=== PATIENT | female | born 1990 | race Caucasian/White ===

== ENCOUNTER 2016-09-01 19:15 | Emergency (ER) | payer MEDICAID ==
--- NOTE | ~2016-09-01 | ER ---
PATIENT'S NAME: JAGJIT RICARDO [facility] AGE: 25 Y [address] ROOM: [place] [address] LOCATION: ED ADMIT DATE: 09/01/2016 ER/Outpatient Report DISCHARGE DATE: 09/01/2016 FAMILY PHYSICIAN: Melchor Mccarthy MD ATTENDING PHYSICIAN: Dean Mcdonnell Admission date and time are documented on the medical record. I saw the patient at 1925 hours. CHIEF COMPLAINT: Nausea and vomiting. HISTORY OF PRESENT ILLNESS: The patient is a 25-year-old female who is primigravida at about 15 weeks gestation. She has had increased nausea and vomiting over the past 3 to 4 days with some lightheadedness. She vomited 10 times today. No diarrhea. No urinary complaints. No chest pain or shortness of breath. No abdominal pain. No back pain. No headache, eyes, ears, nose, throat, neck, or spine pain. No recent colds, coughs, flus, fever, chills, or sweats. No syncope or near syncope. No joint or muscle swelling, redness, or pain. No skin eruptions or rash. No neuro changes, psych issues, or endocrine problems. HOME MEDICATIONS: See attached medication list. ALLERGIES: PENICILLIN. SOCIAL HISTORY: The patient smokes about 3 cigarettes a day. Nondrinker. SIGNIFICANT PAST MEDICAL HISTORY: Tobacco abuse; otherwise, negative. OPERATIONS: None. REVIEW OF SYSTEMS: All systems reviewed by me are negative with the exception of those discussed in the history of present illness. PHYSICAL EXAMINATION: VITAL SIGNS: Temperature 97.8, tympanic, pulse 88, respirations 16, blood pressure 118/58, and O2 sat on room air is 98%. HEAD: Normocephalic. PATIENT'S NAME: DAVION [facility] AGE: 25 Y [address] ROOM: [place] [address] LOCATION: ED ADMIT DATE: 09/01/2016 ER/Outpatient Report DISCHARGE DATE: 09/01/2016 FAMILY PHYSICIAN: Melchor Mccarthy MD ATTENDING PHYSICIAN: Dean Mcdonnell EYES: Extraocular muscles intact. PERRL. EARS, NOSE, THROAT: Clear. Mucous membranes moist. NECK: Negative. SPINE: Negative. LUNGS: Clear. No rales, rhonchi, or wheezes. HEART: Regular. Pulses are palpable. ABDOMEN: Soft, gravid, good bowel tones. No organomegaly or abnormal mass palpable. EXTREMITIES: Intact. NEUROVASCULAR: Intact. SKIN: Clear. No skin eruptions or rash. IMPRESSION: 1. Hyperemesis gravidarum. 2. Intrauterine 15 weeks gestation primigravida. 3. Tobacco abuse. PLAN: The patient given 2 L of normal saline IV in the emergency room, 4 mg of Zofran IV in the emergency room. Discharged home after fluids in. Activity as tolerated. Observation. Fluids, diet as tolerated. Continue present home medications and care. Phenergan 25 mg tablets as needed for nausea, vomiting, Zofran 4 mg ODT as needed for nausea, vomiting. Follow up with personal physician as needed or as scheduled. Discussion ensued with the patient concerning my findings and recommendations, she understands. MD JASON WU/modl /[id number] d: 09/02/16240 t: 09/02/16 1820, OUTPATIENT REPORT
== END 2016-09-01 21:06 | disposition disaster alternative care site (69) ==
LOC: GMED 19:15
DX: O21.0 Mild hyperemesis gravidarum (principal); O99.332 Smoking (tobacco) complicating pregnancy, second trimester; F17.210 Nicotine dependence, cigarettes, uncomplicated; Z88.0 Allergy status to penicillin; Z3A.15 15 weeks gestation of pregnancy
CPT/HCPCS: J2405; J7030

== ENCOUNTER 2016-11-30 19:22 | Outpatient (CLI) | payer MEDICAID ==
[~2016-11-30] VITALS: Ht 160 cm; Wt 86.9 kg
[2016-11-30 20:27] LABS: BILIRUBIN URINE NEGATIVE (NEGATIVE); BLOOD URINE NEGATIVE /UL (NEGATIVE); GLUCOSE URINE NEGATIVE (NEGATIVE); KETONE URINE NEGATIVE (NEGATIVE); LEUKOCYTES URINE NEGATIVE /UL (NEGATIVE); NITRITE URINE NEGATIVE (NEGATIVE); PROTEIN URINE NEGATIVE (NEGATIVE); UROBILINOGEN URINE NORMAL (NORMAL)
[2016-11-30 20:28] LABS: COLOR URINE YELLOW (YELLOW); TURBIDITY URINE CLEAR (CLEAR)
[2016-11-30 20:44] LABS: AMPHETAMINE NEGATIVE (NEGATIVE); BARBITURATE NEGATIVE (NEGATIVE); COCAINE NEGATIVE (NEGATIVE); OPIATES NEGATIVE (NEGATIVE)
[2016-11-30] MEDS ORDERED: PRENATAL 1+1)(P1 TAB PO (21:48)
== END 2016-11-30 21:58 | disposition disaster alternative care site (69) ==
LOC: GOBS 19:22 → GOBM 19:22
PROVIDERS: Family Medicine
DX: O26.893 Other specified pregnancy related conditions, third trimester (principal); K21.9 Gastro-esophageal reflux disease without esophagitis; Z3A.28 28 weeks gestation of pregnancy; R10.9 Unspecified abdominal pain; O99.333 Smoking (tobacco) complicating pregnancy, third trimester; F17.200 Nicotine dependence, unspecified, uncomplicated
CPT/HCPCS: G0463

== ENCOUNTER 2016-12-19 10:44 | Observation (INO) | payer MEDICAID ==
[~2016-12-19] VITALS: Ht 162.6 cm; Wt 89.5 kg
[~2016-12-19 10:44] MED LIST: PRENATAL 1+1)(P1 TAB PO
[2016-12-19 11:33] LABS: BILIRUBIN URINE NEGATIVE (NEGATIVE); BLOOD URINE NEGATIVE /UL (NEGATIVE); GLUCOSE URINE NEGATIVE (NEGATIVE); KETONE URINE NEGATIVE (NEGATIVE); LEUKOCYTES URINE NEGATIVE /UL (NEGATIVE); NITRITE URINE NEGATIVE (NEGATIVE); PROTEIN URINE 15 mg/dL (NEGATIVE); UROBILINOGEN URINE NORMAL (NORMAL)
[2016-12-19 12:01] LABS: AMNISURE RESULT NEGATIVE (NEGATIVE)
[2016-12-19 12:36] LABS: BACTERIA URINE RARE (NEGATIVE); RBC URINE NEGATIVE #/HPF (NEGATIVE); WBC URINE NEGATIVE #/HPF (NEGATIVE)
[2016-12-19 12:47] LABS: BARBITURATE NEGATIVE (NEGATIVE); OPIATES NEGATIVE (NEGATIVE)
[2016-12-19 12:48] LABS: AMPHETAMINE NEGATIVE (NEGATIVE); COCAINE NEGATIVE (NEGATIVE)
== END 2016-12-19 14:40 | disposition disaster alternative care site (69) ==
LOC: GMED 10:44 → GOBS 10:46
PROVIDERS: Family Medicine; ADMIT Family Medicine
DX: O99.89 Other specified diseases and conditions complicating pregnancy, childbirth and the puerperium (principal); R10.30 Lower abdominal pain, unspecified; O99.333 Smoking (tobacco) complicating pregnancy, third trimester; F17.200 Nicotine dependence, unspecified, uncomplicated; Z3A.31 31 weeks gestation of pregnancy; Z88.0 Allergy status to penicillin
CPT/HCPCS: G0463

== ENCOUNTER 2017-01-12 20:09 | Outpatient (CLI) | payer MEDICAID ==
[~2017-01-12] VITALS: Ht 160 cm; Wt 92.8 kg
--- NOTE | ~2017-01-12 | HP ---
[facility]GE[facility] 26 Y [address] ROOM: [place] [address] LOCATION: [facility] ADMIT DATE: 01/12/2017 History & Physical DISCHARGE DATE: 01/12/2017 FAMILY PHYSICIAN: Melchor Mccarthy MD ATTENDING PHYSICIAN: Levi Rosales DATE OF SERVICE: CHIEF COMPLAINT: Decreased movement. HISTORY OF PRESENT ILLNESS: The patient is a 26-year-old G1 with intrauterine at 35 weeks and 0 days, who presented with decreased movement in 24 hours. The patient denies any loss of fluids, vaginal bleeding, or contractions. The patient was placed on a monitor immediately, heart tones were picked up and were reactive, and the patient started feeling movement. PAST MEDICAL HISTORY: History of tobacco abuse. PAST SURGICAL HISTORY: Reviewed. ALLERGIES: NO KNOWN MEDICAL ALLERGIES. MEDICATIONS: vitamin. SOCIAL HISTORY: The patient does chew tobacco, but denies any alcohol or illicit drug use. FAMILY HISTORY: Noncontributory. REVIEW OF SYSTEMS: The patient denies any fevers, chills, chest pain, shortness of breath, dysuria, abdominal pain, or headaches. OBJECTIVE: VITAL SIGNS: Temperature 98.3, pulse 74, and blood pressure 111/62. GENERAL: The patient is alert and oriented, appears in no acute distress. Mood euthymic. HEENT: Normocephalic and atraumatic. Eyes: Conjunctivae clear. No scleral PATIENT'S NAME: JAGJIT RICARDO [facility] AGE: 26 Y [address] ROOM: [place] [address] LOCATION: [facility] ADMIT DATE: 01/12/2017 History & Physical DISCHARGE DATE: 01/12/2017 FAMILY PHYSICIAN: Melchor Mccarthy MD ATTENDING PHYSICIAN: Levi Rosales icterus. Mouth and oropharynx: Mucosa moist and pink. No lesion or exudates. NECK: Supple. No lymphadenopathy. HEART: Regular rate and rhythm. No rubs, murmurs, or gallops. LUNGS: Clear to auscultation bilaterally. ABDOMEN: Gravid. heart tones 140, reactive. Tocometer shows irritability, and cervix was long, closed, and thick. EXTREMITIES: No cyanosis, clubbing, or edema. SKIN: No rashes or lesions. ASSESSMENT: A 26-year-old G1 with intrauterine at 35 weeks 0 days. PLAN: The patient did well during her stay and heart tones were excellent, reactive. Labor precautions were given, and the patient is to do plenty of fluids and rest. She is to follow up with her primary care physician in 2 to 3 days or sooner if any concerns. MD WYATT BEAR/kanwal /[id number] D: [id number] T: [id number] HISTORY & PHYSICAL
== END 2017-01-12 23:00 | disposition disaster alternative care site (69) ==
LOC: GOBM 20:09 → GOBS 20:10 → GOBM 23:00
DX: O36.8130 Decreased fetal movements, third trimester, not applicable or unspecified (principal); Z3A.35 35 weeks gestation of pregnancy
CPT/HCPCS: G0463

== ENCOUNTER 2017-01-29 22:45 | Outpatient (CLI) | payer MEDICAID ==
[~2017-01-29] VITALS: Ht 160 cm; Wt 96.0 kg
[2017-01-29 23:29] LABS: BILIRUBIN URINE NEGATIVE (NEGATIVE); BLOOD URINE NEGATIVE /UL (NEGATIVE); COLOR URINE YELLOW (YELLOW); GLUCOSE URINE NEGATIVE (NEGATIVE); KETONE URINE NEGATIVE (NEGATIVE); LEUKOCYTES URINE 25 /UL (NEGATIVE); NITRITE URINE NEGATIVE (NEGATIVE); PROTEIN URINE NEGATIVE (NEGATIVE); SPEC GRAVITY URINE 1.015 (1.003-1.035); TURBIDITY URINE CLEAR (CLEAR); UROBILINOGEN URINE NORMAL (NORMAL)
[2017-01-29 23:41] LABS: RBC URINE 0-2 #/HPF (NEGATIVE)
[2017-01-29 23:45] LABS: BACTERIA URINE MODERATE (NEGATIVE)
[2017-01-29 23:46] LABS: AMORPHOUS URINE 1+ (NEGATIVE); GRANULAR CASTS URINE 0-2 #/LPF (NEGATIVE)
[2017-01-29 23:47] LABS: HYALINE CAST URINE 0-2 #/LPF (NEGATIVE)
[2017-01-30 00:16] LABS: AMPHETAMINE NEGATIVE (NEGATIVE); BARBITURATE NEGATIVE (NEGATIVE); COCAINE NEGATIVE (NEGATIVE); OPIATES NEGATIVE (NEGATIVE)
== END 2017-01-30 00:30 | disposition disaster alternative care site (69) ==
LOC: GOBS 22:45 → GOBM 22:45 → GOBS 22:46 → GOBM 01-30 00:30
PROVIDERS: Family Medicine
DX: O99.89 Other specified diseases and conditions complicating pregnancy, childbirth and the puerperium (principal); M54.9 Dorsalgia, unspecified; F17.200 Nicotine dependence, unspecified, uncomplicated; Z3A.37 37 weeks gestation of pregnancy; Z88.0 Allergy status to penicillin; Z79.899 Other long term (current) drug therapy
CPT/HCPCS: G0463

== ENCOUNTER 2017-01-31 19:14 | Outpatient (CLI) | payer MEDICAID ==
[~2017-01-31] VITALS: Ht 160 cm; Wt 96.0 kg
[2017-01-31 20:15] LABS: BILIRUBIN URINE NEGATIVE (NEGATIVE); BLOOD URINE NEGATIVE /UL (NEGATIVE); COLOR URINE YELLOW (YELLOW); GLUCOSE URINE NEGATIVE (NEGATIVE); KETONE URINE NEGATIVE (NEGATIVE); LEUKOCYTES URINE 25 /UL (NEGATIVE); NITRITE URINE NEGATIVE (NEGATIVE); PROTEIN URINE NEGATIVE (NEGATIVE); SPEC GRAVITY URINE 1.015 (1.003-1.035); TURBIDITY URINE 2+ (CLEAR); UROBILINOGEN URINE NORMAL (NORMAL)
[2017-01-31 20:27] LABS: AMORPHOUS URINE 1+ (NEGATIVE); BACTERIA URINE MODERATE (NEGATIVE); RBC URINE NEGATIVE #/HPF (NEGATIVE)
== END 2017-01-31 21:04 | disposition disaster alternative care site (69) ==
LOC: GOBM 19:14 → GOBS 19:14 → GOBM 21:04
PROVIDERS: Family Medicine
DX: O99.89 Other specified diseases and conditions complicating pregnancy, childbirth and the puerperium (principal); M54.9 Dorsalgia, unspecified; R10.9 Unspecified abdominal pain; O46.93 Antepartum hemorrhage, unspecified, third trimester; O36.8130 Decreased fetal movements, third trimester, not applicable or unspecified; Z3A.37 37 weeks gestation of pregnancy
CPT/HCPCS: G0463

== ENCOUNTER 2017-02-13 01:19 | Outpatient (CLI) | payer MEDICAID ==
[~2017-02-13] VITALS: Ht 160 cm; Wt 99.4 kg
== END 2017-02-13 06:01 | disposition disaster alternative care site (69) ==
LOC: GOBS 01:19 → GOBM 01:19 → GOBS 01:20 → GOBM 06:01
DX: Z34.93 Encounter for supervision of normal pregnancy, unspecified, third trimester (principal); Z88.0 Allergy status to penicillin
CPT/HCPCS: G0463

== ENCOUNTER 2017-02-17 09:03 | Inpatient (IN) | payer MEDICAID ==
[~2017-02-17] VITALS: Ht 162.6 cm; Wt 98.0 kg
--- NOTE | ~2017-02-17 | OR ---
PATIENT'S NAME: JAGJIT RICARDO [facility] AGE: 26 Y [address] ROOM: [place] [address] LOCATION: [facility]BS ADMIT DATE: 02/17/2017 OR/Procedure Report DISCHARGE DATE: FAMILY PHYSICIAN: Melchor Mccarthy MD ATTENDING PHYSICIAN: Melchor Mccarthy SURGEON: Charito Salazar MD [employer]: DATE OF PROCEDURE: 02/17/2017 PREOPERATIVE DIAGNOSES: 1. Spontaneous rupture of membranes. 2. Spontaneous labor. 3. Term . 4. Pitocin augmentation. POSTOPERATIVE DIAGNOSES: 1. Spontaneous rupture of membranes. 2. Spontaneous labor. 3. Term . 4. Pitocin augmentation. 5. hemorrhage due to uterine atony. PROCEDURE: Spontaneous vaginal delivery. SUMMARY: Jagjit is a 26-year-old, 1, para 0 female, who arrived in with spontaneous rupture of membranes. She had spontaneous onset of labor and was augmented with Pitocin. Fluid was clear. GBS negative. No antibiotics given. She was augmented with Pitocin. heart tones were reassuring throughout her labor course. She began pushing after she was complete and pushed approximately an hour and 45 minutes. Presentation occiput anterior. Delivery of the head very controlled on the perineum. There was no nuchal cord. Anterior shoulder delivered on the next push. Rest of the baby delivered without any difficulty. Baby cried spontaneously. Baby was placed on mother's abdomen, warmed, and dried. Umbilical cord was clamped and cut by father. Baby had a good spontaneous cry after the umbilical cord was cut. Cord blood was obtained. Placenta was delivered spontaneously and intact. She did receive IV Pitocin after delivery of the baby rapidly. Some moderate uterine atony was noted. Bimanual massage was performed and also Methergine given IM with excellent results. There were no cervical or vaginal lacerations. This was checked and double-checked. Placenta was intact with 3 vessels and that again was double-checked. No lacerations. No repairs required. Sponge and needle counts were correct. EBL 500 mL. No other complications. Her vitals remained stable at all times. PROGNOSIS: Excellent. PATIENT'S NAME: JAGJIT RICARDO [facility] AGE: 26 Y [address] ROOM: [place] [id number] LOCATION: GOBS ADMIT DATE: 02/17/2017 OR/Procedure Report DISCHARGE DATE: FAMILY PHYSICIAN: Melchor Mccarthy MD ATTENDING PHYSICIAN: Melchor Mccarthy CHARITO MD OLENA LEW/modl /[id number] d: 02/18/17 0157 t: 02/26/17 0809, OPERATIVE SUMMARY
[2017-02-17 10:25] LABS: BASOPHIL # 0.1 K/uL (0.0-0.2); BASOPHIL % 0.4 %; EOSINOPHIL # 0.1 K/uL (0.0-0.5); EOSINOPHIL % 0.6 %; HEMATOCRIT 39.3 % (33.0-46.0); HEMOGLOBIN 13.6 g/dL (11.0-15.0); IMMATURE GRANULOCYTE # 0.3 K/uL (0.0-0.3); IMMATURE GRANULOCYTE % 1.9 %; LYMPHOCYTE # 2.5 K/uL (0.8-4.0); LYMPHOCYTE % 15.5 %; MCH 31.1 pg (27.0-34.0); MCHC 34.6 gm/dL (32.0-36.5); MCV 89.7 fl (83.0-98.0); MONOCYTE # 1.3 K/uL (0.0-1.0); MONOCYTE % 7.9 %; MPV 11.5 fl (9.4-12.4); NEUTROPHIL # (ANC) 11.9 K/uL (1.8-7.8); NEUTROPHIL % 73.7 %; NRBC % 0.1 /100WBC (0-0.00); PLATELET COUNT 225 K/uL (150-450); RBC 4.38 M/uL (3.50-5.00); RDW-CV 13.2 % (11.9-14.6); WBC 16.2 K/uL (4.0-11.0)
[2017-02-18 05:13] LABS: BASOPHIL % 0.2 %; EOSINOPHIL # 0.1 K/uL (0.0-0.5); EOSINOPHIL % 0.3 %; HEMOGLOBIN 9.7 g/dL (11.0-15.0); IMMATURE GRANULOCYTE # 0.3 K/uL (0.0-0.3); IMMATURE GRANULOCYTE % 1.4 %; LYMPHOCYTE # 2.6 K/uL (0.8-4.0); LYMPHOCYTE % 11.5 %; MCHC 34.3 gm/dL (32.0-36.5); MCV 90.7 fl (83.0-98.0); MONOCYTE # 1.5 K/uL (0.0-1.0); MONOCYTE % 6.7 %; MPV 11.1 fl (9.4-12.4); NEUTROPHIL # (ANC) 18.2 K/uL (1.8-7.8); NEUTROPHIL % 79.9 %; NRBC % 0 /100WBC (0-0.00); PLATELET COUNT 208 K/uL (150-450); RDW-CV 13.2 % (11.9-14.6)
[2017-02-18 05:14] LABS: HEMATOCRIT 28.3 % (33.0-46.0); MCH 31.1 pg (27.0-34.0); RBC 3.12 M/uL (3.50-5.00); WBC 22.7 K/uL (4.0-11.0)
--- NOTE | 2017-02-18 05:42 | NUR ---
VSS. HEAVY BLEEDING IMMEDIATELY FOLLOWING DELIVERY, RECEIVED ONE DOSE OF METHERGINE, BLEEDING HAS BEEN WNL SINCE. FUNDUS FIRM, -1, SMALL FLOW. VOIDING WITHOUT DIFFICULTY AND HAS BEEN UP AND SHOWERED. LAST HAD 2 PERCOCET AT 0339. COMPLAINS OF PAIN ONLY IN HER BACK WHERE EPIDURAL WAS PLACED.
--- NOTE | 2017-02-18 17:00 | NUR ---
Met with patient and significant other/FOB at bedside today. Introduced myself and explained my role with the CM department. Patient states they have all the necessary items at home for baby including a crib or bassinet for sleeping. I instructed her to contact her insurance and notify them of baby's . I provided her with a list of community resources in the [facility]. Provided her with a voucher to the [facility] for formula and information on [employer] at the [facility] for additional supports. I also reviewed signs and symptoms of post depression and left her the hand out to refer to. They deny any needs or concerns regarding discharge. Will continue to follow and offer support as needed.
--- NOTE | 2017-02-18 18:08 | NUR ---
Last VS: T:98.0 P:98 R: 17 BP: 136/74 Pain ratin Last pain med: Motrin Medicated at: 1553 Effective: Yes Breasts: SOFT Nipples: NA- BOTTLE FEEDING ONLY Fundus: FIRM, EVEN, MIDLINE Lochia: SMALL, RUBRA Epis/Perineum: APPROXIMATED Voiding well: YES Significant event: NEEDS RHOGAM ORDERED FROM PHARMACY WAITING FOR IT TO COME UP, PERCOCET 2 TABS LAST @ 1110-PT STATES IT MADE HER NAUSEATED ENCOURAGED HER TO EAT WITH THEM NEXT TIME OR JUST TRY ONE, PT WOULD LIKE TO DO JACUZIE TUB TONIGHT.
[2017-02-19] MEDS ORDERED: PERCOCET 5-3251 EACH PO (14:06)
[2017-02-19] MEDS ORDERED: MOTRIN800 MG PO (14:06)
== END 2017-02-19 14:50 | disposition disaster alternative care site (69) | DRG 774 ==
LOC: GOBM 09:03 → GOBS 09:03 → GOBM 09:04 → GOBS 02-19 14:50
PROVIDERS: ADMIT Family Medicine
PROC: 10E0XZZ Delivery of Products of Conception, External Approach (ICD-10-PCS; principal; 2017-02-17)
DX: O42.02 Full-term premature rupture of membranes, onset of labor within 24 hours of rupture (principal); O72.1 Other immediate postpartum hemorrhage; Z3A.39 39 weeks gestation of pregnancy; Z37.0 Single live birth
CPT/HCPCS: J2001; J2210; J2590; J2791; J3010; J7120